=== PATIENT | male | born 2000 | race Caucasian/White ===

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

== ENCOUNTER 2022-05-12 18:14 | Emergency (ER) | payer BC | END 2022-05-12 18:42 | disposition home or self-care (01) | LOC: KA.ED 18:14 | DX: Q55.20 Unspecified congenital malformations of testis and scrotum (principal) | CPT/HCPCS: 99283; 99284 ==